=== PATIENT | female | born 1990 | race Caucasian/White ===

== ENCOUNTER 2017-01-02 20:44 | Emergency (ER) | payer OTHER ==
--- NOTE | 2017-01-02 23:06 | ER Document Report ---
HPI - HPI Patient complains to provider of: throat pain, sinus pain, ear pain Pain Level: 3 Context: Patient is a 26-year-old female comes emergency department for chief complaint of sore throat, right ear pain, and sinus pain. Symptoms have been developing over the past couple of days. She denies fever. She denies cough, difficulty breathing, headache, or neck pain. She is breast-feeding. - REPRODUCTIVE Reproductive: DENIES: : - DERM Skin Color: Normal Past Medical History - General Information source: Patient - Social History Smoking Status: Never Smoker Frequency of alcohol use: None Drug Abuse: None Lives with: Family Family History: Reviewed & Not Pertinent Patient has suicidal ideation: No Patient has homicidal ideation: No Renal/ Medical History: Denies: Hx Peritoneal Dialysis GI Medical History: Reports: Hx Hepatitis Infectious Medical History: Reports: Hx Hepatitis Past Surgical History: Reports: Hx Tonsillectomy - Immunizations Hx Diphtheria, Pertussis, Tetanus Vaccination: Yes Vertical Provider Document - CONSTITUTIONAL General Appearance: WD/WN, No Apparent Distress - INFECTION CONTROL TRAVEL OUTSIDE OF THE [place] IN LAST 30 DAYS: No - HEENT HEENT: Atraumatic, Normocephalic - 1 more. negative: Normal ENT Exam - smaller mild pharyngeal erythema with no observable tonsils, right-sided otitis media with loss of landmarks and arrhythmia, left ear exam is unremarkable, mild tenderness over both frontal and maxillary sinuses, mild sinus congestion, otherwise unremarkable ENT exam - NECK Neck: Normal Inspection - RESPIRATORY Respiratory: Breath Sounds Normal, No Respiratory Distress O2 Sat by Pulse Oximetry: 99 - CARDIOVASCULAR Cardiovascular: Regular Rate, Regular Rhythm - GI/ABDOMEN Gastrointestinal: Abdomen Soft, Abdomen Non-Tender - BACK Back: Normal Inspection - MUSCULOSKELETAL/EXTREMETIES Musculoskeletal/Extremeties: MAEW, FROM, Non-Tender - DERM Integumentary: Warm, Dry, No Rash Course - Re-evaluation Re-evalutation: Strep is negative. Pharyngeal examination unremarkable. Well-appearing patient. No lymphadenopathy. Patient does have some sinus tenderness, sinus congestion, and she actually has a right-sided otitis media. Discussed with patient, recommended she begin antibiotics in a couple of days if symptoms worsen, however she declined, she requests antibiotics now. Giving amoxicillin and Blanca. Discussed these in breast-feeding. Discussed follow-up and return precautions, patient states understanding and agreement. - Vital Signs Vital signs: Temp Pulse Resp BP Pulse Ox 98.5 F 97 16 127/78 H 99 01/02/17 21:24 01/02/17 21:24 01/02/17 21:24 01/02/17 21:24 01/02/17 21:24 Discharge - Discharge Clinical Impression: Sinusitis Qualifiers: Sinusitis location: unspecified location Chronicity: acute Recurrence: non- recurrent Qualified Code(s): J01.90 - Acute sinusitis, unspecified Pharyngitis Qualifiers: Pharyngitis/tonsillitis etiology: unspecified etiology Qualified Code(s): J02.9 - Acute pharyngitis, unspecified Otitis media Qualifiers: Otitis media type: suppurative Chronicity: acute Laterality: right Recurrence: not specified as recurrent Spontaneous tympanic membrane rupture: without spontaneous rupture Qualified Code(s): H66.001 - Acute suppurative otitis media without spontaneous rupture of ear drum, right ear Condition: Stable Disposition: HOME, SELF-CARE Prescriptions: Amoxicillin Trihydrate [Amoxil 500 mg Capsule] 500 mg PO TID #30 cap Fexofenadine HCl [Blanca Allergy] 180 mg PO DAILY #30 tablet Forms: Return to Work
[2017-01-02] MEDS ORDERED: AMOXICILLIN TRIHYDRATE 500 MG CAPSULE PO ONE (23:21)
[2017-01-02 23:22] VITALS: BP 121/73
== END 2017-01-02 23:24 | disposition home or self-care (01) ==
LOC: ER 20:44
DX: J01.90 Acute sinusitis, unspecified (principal); J02.9 Acute pharyngitis, unspecified; H66.001 Acute suppurative otitis media without spontaneous rupture of ear drum, right ear; R07.0 Pain in throat; R51 Headache; H92.01 Otalgia, right ear
CPT/HCPCS: 87070; 87880; 99283